=== PATIENT | female | born 1960 | race Caucasian/White ===

== ENCOUNTER 2019-10-22 08:33 | Outpatient (CLI) | payer BC, SELFPAY ==
--- NOTE | ~2019-10-22 | MM_ITS ---
EXAMINATION: MM screening yvette BI w raiza HISTORY: Screening mammogram TECHNIQUE: Craniocaudal and mediolateral oblique 3-D tomosynthesis images were obtained and synthetic 2-D images were generated. Bilateral rotated lateral CC views. CAD analysis was submitted and interp reted. COMPARISON: 09/13/2018, 08/18/2017, 08/03/2016 bilateral digital screening mammogram examinations BREAST PARENCHYMAL COMPOSITION: The breasts are extremely dense, which lowers the sensitivity of mamm ography. FINDINGS: There is a new asymmetric 13 mm opacity versus summation ....shadowing in the posterior out er left breast on craniocaudal projection. Diagnostic left mammogram and left breast ultrasound exami nation are recommended. Otherwise there is no evidence of suspicious mass, calcification, or architectural distortion to sugg est malignancy in either breast. There has been no other suspicious interval change. IMPRESSION: 1. Asymmetry in the posterior outer left breast on CC projection 2. Diagnostic left mammogram and left breast ultrasound examination are recommended BI-RADS Category 0: Incomplete: Needs additional imaging evaluation. Reviewed, dictated and finalized at location A. IMPRESSION: 1. Asymmetry in the posterior outer left breast on CC projection 2. Diagnostic left mammogram and left breast ultrasound examination are recomme nded BI-RADS Category 0: Incomplete: Needs additional imaging evaluation.
== END 2019-10-22 08:34 | disposition home or self-care (01) ==
PROVIDERS: PCP Internal Medicine; Visit Provider Nurse Practitioner
DX: Z12.31 Encounter for screening mammogram for malignant neoplasm of breast (principal)
CPT/HCPCS: 77063; 77067

== ENCOUNTER 2019-11-12 11:38 | Outpatient (CLI) | payer BC, SELFPAY ==
--- NOTE | ~2019-11-12 | MMUS_ITS ---
EXAMINATION: MM diagnostic mammo unilat LT, US breast LT limited HISTORY: Focal asymmetry of the left breast on screening mammogram TECHNIQUE: Additional 3-D tomosynthesis images of the left breast were performed and synthetic 2-D im ages were generated. CAD analysis was submitted and interpreted. High resolution limited left breast ultrasound was performed. COMPARISON: 10/22/2019, 09/13/2018, 08/18/2017, 08/03/2016 FINDINGS: MAMMOGRAPHIC FINDINGS: With spot compression, the focal asymmetry of the left breast described on screening mammogram has an appearance similar to comparison mammograms. No suspicious mass, calcification, or architectural dis tortion is identified. ULTRASOUND: There is no evidence of focal abnormal solid or cystic lesion in the vicinity of the mammographic fin ding in question. A 3 mm cyst is noted at the 4:00 location 6 cm from the nipple. IMPRESSION: 1. No mammographic or sonographic evidence of malignancy. 2. Recommend routine screening mammography in one year. BI-RADS Category 2: Benign finding(s). Reviewed, dictated and finalized at location A. IMPRESSION: 1. No mammographic or sonographic evidence of malignancy. 2. Recommend routine screening mammography in one year. BI-RADS Category 2: Benign finding(s).
== END 2019-11-12 11:39 | disposition home or self-care (01) ==
PROVIDERS: PCP Internal Medicine; Visit Provider Obstetrics & Gynecology Gynecology
DX: R92.8 Other abnormal and inconclusive findings on diagnostic imaging of breast (principal)
CPT/HCPCS: 76642; 77061; 77065; G0279

== ENCOUNTER → 2020-01-21 10:40 | Outpatient (CLI) | payer BC, SELFPAY ==
--- NOTE | ~2020-01-21 | XR_ITS ---
EXAMINATION: XR lumbar spine 6V w bending EXAM DATE: 01/21/2020 11:05 INDICATION: Low back pain radiating down right side. TECHNIQUE: Lumber spine frontal, lateral, bilateral oblique projections. Coned down frontal and lat eral L5-S1 lumbar projections for interpretation. Additional lateral flexion and lateral extension p rojections obtained. There are no prior studies for comparison. FINDINGS: Moderate disc disease at T11-12. The vertebral body and disc heights are otherwise well yunier ntained. The vertebral bodies are aligned in the AP dimension on the lateral projections. No spondylo lysis. Mild lumbar levoscoliosis. Mild lumbar facet arthropathy. Paraspinal soft tissue is unremarkab le. Sacrum, sacroiliac joints, sacral arcuate lines are intact. IMPRESSION: 1. Mild lumbar facet arthropathy. 2. T11-T12 moderate disc disease. Reviewed, dictated and finalized at location B.
== END ==
PROVIDERS: PCP Internal Medicine; Visit Provider Internal Medicine
DX: M51.34 Other intervertebral disc degeneration, thoracic region (principal)
CPT/HCPCS: 72114

== ENCOUNTER 2020-10-14 11:41 | Emergency (ER) | payer BC, SELFPAY ==
[2020-10-14 12:02] VITALS: BP 128/83; PULSE 72; RESP 16; TEMP 36.6; O2SAT 98
--- NOTE | 2020-10-14 12:18 | ED.GENADULT ---
HPI - General Adult General Chief complaint: Upper Respiratory Infection Stated complaint: chest congestion Source: patient Mode of arrival: ambulatory Limitations: no limitations History of Present Illness HPI narrative: 60 y/o female. PMH includes: MDD, Hypothyroid. Presents to ED today with acute complaints of nasal congestion, bilateral ear 'pressure', and nonproductive cough for the past 5 days. No fever, chills. No BUSH, sore throat. No chest pain, dyspnea, edema. She reports to have been experiencing 'yellow' and purulent nasal discharge, also noting maxillary facial pressure. -Covid vaccine UTD, and no concerns for covid viral type illness. -No additional acute complaints of illness have been relayed upon exam. Related Data Home Medications Medication Instructions Recorded Confirmed paroxetine HCl 20 mg tablet 20 mg PO DAILY tablet 02/11/20 02/11/20 Allergies Allergy/AdvReac Type Severity Reaction Status Date / Time No Known Allergies Allergy Verified 10/14/20 12:04 Review of Systems Review of Systems: Narrative: CONSTITUTIONAL: Denies fever, chills, sweats. EYES: Denies visual changes, redness, discharge. ENT: Positive rhinorrhea, congestion. Ear 'fullness'. 89-year-old man denies sore throat, otalgia. CARDIOVASCULAR: Denies chest pain, palpitations, edema. RESPIRATORY: Cough, non-productive. Denies dyspnea, wheezing. GASTROINTESTINAL: Denies abdominal pain, nausea, vomiting, diarrhea. GENITOURINARY: Denies dysuria, hematuria, abnormal discharge SKIN: Denies rash or itching. MUSCULOSKELETAL: Denies acute back pain, joint pain, or myalgia. NEUROLOGIC: Denies numbness, or focal weakness. PSYCHIATRIC: Denies anxiety or depression. All systems reviewed & are unremarkable except as noted in HPI and below PMFSH Past Medical History Medical History Melanoma Treated at [facility] c/o Dr. Singh Social History Social History Smoking status: Never smoker Second hand tobacco smoke exposure: No Alcohol intake: current Course Vital Signs Vital signs: Vital Signs Temperature 36.6 C 10/14/20 12:02 Pulse Rate 72 10/14/20 12:02 Respiratory Rate 16 10/14/20 12:02 Blood Pressure 128/83 10/14/20 12:02 Pulse Oximetry 98 10/14/20 12:02 Temperature 36.6 C 10/14/20 12:02 Pulse Rate 72 10/14/20 12:02 Respiratory Rate 16 10/14/20 12:02 Blood Pressure 128/83 10/14/20 12:02 Pulse Oximetry 98 10/14/20 12:02 Medical Decision Making MDM Narrative Medical decision making narrative: -Non-smoker. -No active Covid 19 viral concern. -Persistent and purulent nasal discharge, worsening > 72 hour timeframe. -Afebrile, non-tachycardic, normotensive, no apparent distress. -Start OP Zpack & Medrol Dose pack as directed for Sinusitis bacterial. -PC F/U 1 week advised. -Pt is aware to seek out additional prompt medical evaluation with emergent health status changes. Differential Diagnosis Differential Diagnosis: Differential Diagnosis: Consideration of the following conditions may be warranted for the presenting problem, they are not final diagnoses: upper respiratory infection, otitis media, sinusitis, RSV viral infection, bronchitis, pharyngitis, Streptococcal sore throat, COVID-19, and other. Medical Records Medical records reviewed: Yes I reviewed the external patient's medical records. Vital Signs Vital Signs: Vital Signs Temperature 36.6 C 10/14/20 12:02 Pulse Rate 72 10/14/20 12:02 Respiratory Rate 16 10/14/20 12:02 Blood Pressure 128/83 10/14/20 12:02 Pulse Oximetry 98 10/14/20 12:02 Temperature 36.6 C 10/14/20 12:02 Pulse Rate 72 10/14/20 12:02 Respiratory Rate 16 10/14/20 12:02 Blood Pressure 128/83 10/14/20 12:02 Pulse Oximetry 98 10/14/20 12:02 Critical Care Time Critical Care Time Critical C
== END 2020-10-14 12:38 | disposition home or self-care (01) ==
PROVIDERS: Emergency Provider Nurse Practitioner Adult Health
DX: J01.90 Acute sinusitis, unspecified (principal); E03.9 Hypothyroidism, unspecified
CPT/HCPCS: 99213; G0463

== ENCOUNTER 2020-10-23 07:31 | Outpatient (CLI) | payer BC, SELFPAY ==
--- NOTE | ~2020-10-23 | MM_ITS ---
EXAMINATION: MM screening yvette BI w raiza HISTORY: Screening mammogram TECHNIQUE: Craniocaudal and mediolateral oblique 3-D tomosynthesis images were obtained and synthetic 2-D images were generated. CAD analysis was submitted and interpreted. COMPARISON: No prior mammogram is available for comparison at this institution. BREAST PARENCHYMAL COMPOSITION: There are scattered areas of fibroglandular density. FINDINGS: History of bilateral breast reduction surgery in 1998. Scattered bilateral benign calcifica tions. There is no evidence of suspicious mass, calcification, or architectural distortion to suggest malignancy in either breast. There has been no suspicious interval change. IMPRESSION: 1. No mammographic evidence of malignancy. 2. Recommend routine screening mammography in one year. BI-RADS Category 2: Benign finding(s). Reviewed, dictated and finalized at location A.
== END 2020-10-23 07:32 | disposition home or self-care (01) ==
LOC: ANHIMG 07:33
PROVIDERS: Visit Provider Obstetrics & Gynecology Gynecology
DX: Z12.31 Encounter for screening mammogram for malignant neoplasm of breast (principal)
CPT/HCPCS: 77063; 77067

== ENCOUNTER 2021-12-13 14:55 | Outpatient (CLI) | payer BC, SELFPAY ==
[2021-12-13 16:48] LABS: Anion Gap 9 mmol/L (8-16); Blood Urea Nitrogen 15 mg/dL (7-17); Calcium 9.5 mg/dL (8.4-10.2); Carbon Dioxide 28 mmol/L (22-30); Chloride 102 mmol/L (98-107); Estimated Glomerular Filt Rate 57; Glucose 110 mg/dL (65-110); Potassium 4.4 mmol/L (3.4-5.0); Sodium 139 mmol/L (137-145)
== END 2021-12-13 14:56 | disposition home or self-care (01) ==
LOC: ANHSURGERY 14:59
PROVIDERS: Anesthesiology; PCP Family Medicine; Visit Provider Orthopaedic Surgery
DX: E87.6 Hypokalemia (principal); Z01.818 Encounter for other preprocedural examination
CPT/HCPCS: 36415; 80048

== ENCOUNTER 2021-12-16 00:19 | Day surgery (SDC) | payer BC, SELFPAY ==
--- NOTE | 2021-12-13 11:06 | SUR.PREOP ---
Report to the Outpatient Waiting Room, entrance under the green pavilion located off [facility], at time 0730 on date 12/16/21. OR Time: 0930. - You and your visitor will be asked to self-screen and do not enter if you have any COVID symptoms. - Only one visitor and NO children visitors are allowed at this time. - The patient visitor is requested to leave or wait in car when not with patient due to restrictions. - A mask is required within the hospital. Patients may have clear liquids (water, carbonated beverages, clear teas, apple juice) until 3 hours prior to surgery with a maximum of 20 ounces. - NO CLEAR LIQUIDS AFTER 0630 - No food from midnight until time of surgery - Infants may have breast milk until 4 hours before surgery, infant formula 6 hours prior to surgery. - Children will be allowed to drink immediately following surgery. If applicable, please bring a bottle or sippy cup to assist with drinking. Juice, water, soda, and popsicles are readily available. For infants on formula, please bring formula the day of surgery. Pacifiers are allowed. Take the following medications with a SIP of water the morning of surgery: PAXIL, LEVOTHYROXINE Please no make-up, nail portuguese, hairspray, perfume, deodorant, or body powder the day of surgery. No jewelry (including any body piercings) or valuables the day of surgery, leave them at home. Please take a shower or bath the night before, or the morning of, surgery with an antibacterial soap. Wear comfortable, loose fitting clothing. Children are encouraged to wear pajamas. - Jewelry must be removed prior to entering the operating room. Rings and piercings that are not removed may be cut off. - The hospital will not accept responsibility for valuables. - Please leave all valuables, including medications, at home the day of surgery. If you are going home after surgery, a licensed inventory associate and driver must drive you home. - NO public transportation without another adult. - We recommend that an adult stay with you for 24 hours following discharge. - We also recommend that you do not drive, make important decision, drink alcoholic beverages, or take any drugs that were not prescribed by your health care provider for at least 24 hours after your discharge time. For Pediatric surgeries, we recommend two adults accompany the child home (only one inside the building at this time). Follow any additional instructions given to you from your surgeon. If you or anyone in your household have experienced Covid symptoms in the past week, please notify your surgeon or the nurse liaison at the phone number below for possible testing. Telephone instructions given to RACHID RUST and asked if any additional questions and then verbalized understanding. Patient advised to call surgeon office or pre surgery nurse liaison [phone] if any additional questions.
[2021-12-13 11:45] VITALS: BMI 36.1
--- NOTE | 2021-12-16 07:03 | PM.IMHP ---
H&P: HPI History of Present Illness Date/Time: 12/16/21 07:03 Chief Complaint: Left hand numbness and tingling, catching of the ring finger. Narrative: 61-year-old woman diagnosed with left carpal tunnel and trigger finger deformity. Failed conservative treatment. Presents for operative treatment. Review of Systems Constitutional: Constitutional: Denies fever(s) Eyes: Eyes: Denies blurry vision ENT: Reports Normal hearing present Cardiovascular: Cardiovascular: Denies chest pain and Denies dyspnea Respiratory: Respiratory: Denies dyspnea and Denies wheezing Gastrointestinal: Gastrointestinal: Denies abdominal pain Genitourinary: Genitourinary: Denies urinary urgency Musculoskeletal: Musculoskeletal: Reports as per HPI and Denies numbness Integumentary/Breasts: Skin/Breast: Denies changing lesions and Denies sores Neurologic: Reports Normal hearing present, Denies behavioral changes, Denies confusion, Denies numbness and Denies convulsions Psychiatric: Psychiatric: Denies behavioral changes, Denies confusion and Denies hallucinations Endocrine: Endocrine: Denies heat intolerance Hematologic/Lymphatic: Hematologic/Lymphatic: Denies easy bleeding Allergic/Immunologic: Allergic/Immunologic: Denies wheezing PMFSH Past Medical History Medical History Carpal tunnel syndrome, right Melanoma Treated at [facility] c/o Dr. Singh Surgical History Surgical History Hx of breast reduction, elective Family History Family History Other Arthritis Cerebrovascular accident Social History Social History Smoking status: Never smoker Second hand tobacco smoke exposure: No Alcohol intake: current Substance use type: does not use Gender identity (if verbalized by the patient): Female Spiritual care concerns: No Meds Home Medications and Allergies Home Medications Medication Instructions Recorded Confirmed Type paroxetine HCl 20 mg tablet 20 mg PO DAILY 02/11/20 12/13/21 History iron 18 mg tablet 18 mg PO DAILY 01/21/21 12/13/21 History spironolactone 100 mg tablet 100 mg PO DAILY #90 tabs 09/10/21 12/13/21 Rx cholecalciferol (vitamin D3) 1,250 50,000 unit PO WEEKLY 12/13/21 12/13/21 History mcg (50,000 unit) capsule levothyroxine 137 mcg tablet 137 mcg PO DAILY 12/13/21 12/13/21 History Allergies Allergy/AdvReac Type Severity Reaction Status Date / Time No Known Allergies Allergy Verified 12/13/21 11:17 Exam Const: General: cooperative, healthy appearing, no acute distress, well developed and alert; No confusion Orientation/consciousness: patient oriented x3 and No confusion HENMT: Head: normal to inspection, normocephalic and atraumatic Eyes: Conjunctivae: conjunctivae normal Sclera: sclerae normal Neck: Neck: supple and nontender Chest: Chest palpation & inspection: normal inspection of the chest Resp: Effort & Inspection: normal respiratory effort and no audible wheezes Cardio: Rate: regular rate Rhythm: regular rhythm : General: Yes deferred Skin: General skin exam: no rashes or lesions noted Neuro: General: patient oriented x3 and No confusion Assessment and Plan Assessment and plan (1) Trigger finger: Qualifiers: Trigger finger location: index finger Laterality: left Qualified Code(s): M65.322 - Trigger finger, left index finger Code(s): M65.30 - Trigger finger, unspecified finger Status: Acute (2) CTS (carpal tunnel syndrome): Qualifiers: Laterality: left Qualified Code(s): G56.02 - Carpal tunnel syndrome, left upper limb Code(s): G56.00 - Carpal tunnel syndrome, unspecified upper limb Status: Acute Assessment and Plan: Discussed nonoperative and opera
--- NOTE | 2021-12-16 07:05 | WPDHPUPDATE1 ---
History and Physical Update Update Date/Time: 12/16/21 07:05 History and Physical has been reviewed, including an updated exam of the patient. There are NO changes in the patient's condition. Risks, benefits, and alternatives have been discussed and questions answered. Patient agrees to proceed with procedure.
--- NOTE | 2021-12-16 08:19 | P.PNAN_ITS ---
Anes - Initial Pre Proc Eval Procedure: Operation Date: 12/16/21 09:30 Proposed Procedures p Left Open Carpal Tunnel Release, - Isaias Ardon MD s Left Middle and Index Trigger Finger Release - Isaias Ardon MD Date/Time: 12/16/21 08:19 Surgeon: Isaias Ardon MD Pre Op Diagnosis: lft cts, lft middle&index finger locking Patient Data Age: 61 Gender: F Height: 1.7 m Weight: 104.5 kg Allergies Allergy/AdvReac Type Severity Reaction Status Date / Time No Known Allergies Allergy Verified 12/16/21 08:26 Home Medications Medication Instructions Recorded Confirmed Type paroxetine HCl 20 mg tablet 20 mg PO DAILY 02/11/20 12/16/21 History iron 18 mg tablet 18 mg PO DAILY 01/21/21 12/16/21 History spironolactone 100 mg tablet 100 mg PO DAILY #90 tabs 09/10/21 12/16/21 Rx cholecalciferol (vitamin D3) 1,250 50,000 unit PO WEEKLY 12/13/21 12/16/21 History mcg (50,000 unit) capsule levothyroxine 137 mcg tablet 137 mcg PO DAILY 12/13/21 12/16/21 History Patient hx anesthesia problems: none Family hx anesthesia problems: none Results Review: All pre-operative results and documents have been reviewed as part of the pre- operative evaluation. [facility] Past Medical History Medical History (Updated 12/16/21 @ 08:20 by Deon Figueroa DO) Carpal tunnel syndrome, right Generalized anxiety disorder Hyperlipidemia Hypothyroidism, unspecified Melanoma Treated at [facility] c/o Dr. Singh Surgical History Surgical History Hx of breast reduction, elective Family History Family History Other Arthritis Cerebrovascular accident Social History Social History Smoking status: Never smoker Second hand tobacco smoke exposure: No Alcohol intake: current Substance use type: does not use Gender identity (if verbalized by the patient): Female Spiritual care concerns: No Anes - Eval Final PreProcedure Day of Procedure 12/16/21 08:19 Patient weight: obese Heart: regular rate and rhythm Lungs: clear to auscultation Airway: Mallampati scale class II Neurological: alert and oriented Last oral intake: >/= 8 hours ASA classification: II Emergent: no Anesthetic plan: proceed Anesthesia type and monitoring: general GIVS and standard monitoring Results Review: All pre-operative results and documents have been reviewed as part of the pre- operative evaluation. Informed Consent: The patient's anesthetic plan and its attendant risks and benefits were discussed with the patient/family/POA. Questions were solicited and answers provided to the satisfaction of the patient/family/POA.
[2021-12-16 08:23] VITALS: BP 122/65; PULSE 60; RESP 16; TEMP 36.6; O2SAT 99
[2021-12-16] MEDS: LACTATED RINGERS 1,000 ML 30 ML IV CONT (08:25)
[2021-12-16] MEDS: ACETAMINOPHEN 500 MG TABLET 1000 MG PO (08:34)
[2021-12-16] MEDS: KETOROLAC 15 MG/ML VIAL (*BKC) IV PUSH (08:34)
--- NOTE | 2021-12-16 09:18 | W.PM.PROC2 ---
Procedure Note - Detailed Date of Procedure 12/16/21 Pre-op Diagnosis lft cts, lft middle&index finger locking Post-op Diagnosis Same Procedure Performed Left carpal tunnel release. 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 Conservative treatment with bracing/ splinting, activity modifications, medication, ergonomics, injections has failed. Symptoms are daily and affect ability to use hand. The patient desires operative treatment. In addition, trigger deformity of the left index and middle finger. Unrelieved with cortisone injection. Desires operative release. Description of Procedure After informed consent was given, the operative extremity was marked in the preoperative holding area. Intravenous antibiotics were given. The patient was taken to the operating room and underwent conscious sedation by the anesthesia team. A time-out was performed confirming patient, procedure, and operative site. Local infiltrate at the carpal tunnel was done with 0.5% marcaine. Prepping and draping was done using chloraprep skin solution with usual surgical sterile technique. Anatomic landmarks marked on skin. Hand was exsanguinated and arm tourniquet inflated to 225mmHg. Incision was made with #15 blade knife in skin crease on volar palm. Hemostasis was achieved with electrocautery. Careful dissection was carried down to the transverse carpal ligament. Retractors were placed. Ligament overlying median nerve was incised in line with skin incision using habematolel blade. Proximal and distal release was done with metzenbaum scissors under direct visualization. Mosquito clamp was placed deep to ligament to protect nerve during release. The nerve was inspected and noted to be intact with mild flattening. Tendons had good excursion. The index finger was then addressed. Transverse incision was made in the skin crease over the A1 marcelo with a 15 blade knife. Hemostasis controlled with bipolar cautery. Flexor tendon identified. Retractors placed. Release of the A1 marcelo then performed with [place] blade and direct visualization. Finger was then taken through range of motion and good release of the tendon was noted. The long middle finger was then addressed. Transverse incision was made in the skin crease over the A1 marcelo with a 15 blade knife. Hemostasis controlled with bipolar cautery. Flexor tendon identified. Retractors placed. Release of the A1 marcelo then performed with [place] blade and direct visualization. Finger was then taken through range of motion and good release of the tendon was noted. The tourniquet was then released and pressure held. Bleeding points were coagulated with bipolar cautery. The wounds were thoroughly irrigated with antibiotic solution. The skin was closed with 4-0 nylon interrupted suture. A sterile dressing was applied. Good capillary refill in the fingers and thumb was noted. The patient was transported to the recovery room in stable condition. All sponge, needle, instrument counts were correct at the end of the case. Estimated Blood Loss 2 Tourniquet Time 7 Drains No Packing No Pathology None sent Complications None Condition Stable Disposition PACU
[2021-12-16] MEDS: ceFAZolin 2 GM/D5W 50 ML 2 GM/50 ML BAG IVPB (09:30)
[2021-12-16] MEDS: LIDOCAINE HCL 2% PF INJ 5 ML VIAL 20 ML INFILTRATE (10:05)
[2021-12-16 10:30] VITALS: BP 103/66; PULSE 71; RESP 16; O2SAT 95
[2021-12-16 11:00] VITALS: BP 113/75; PULSE 57; RESP 16
[2021-12-16 11:30] VITALS: BP 117/84; PULSE 67; RESP 16
== END 2021-12-16 11:32 | disposition home or self-care (01) ==
PROVIDERS: PCP Family Medicine; Visit Provider Orthopaedic Surgery
PROC: (CPT 64721; principal; 2021-12-16 09:30)
PROC: (CPT 26055; 2021-12-16 09:30)
DX: G56.02 Carpal tunnel syndrome, left upper limb (principal); M65.332 Trigger finger, left middle finger; M65.322 Trigger finger, left index finger; M24.842 Other specific joint derangements of left hand, not elsewhere classified; E03.9 Hypothyroidism, unspecified; F41.1 Generalized anxiety disorder; E78.5 Hyperlipidemia, unspecified; Z85.820 Personal history of malignant melanoma of skin; E66.9 Obesity, unspecified; Z68.36 Body mass index [BMI] 36.0-36.9, adult
CPT/HCPCS: 64721; 26055 ×2; A9270; J0690; J1885; J2250; J2704; J3010; J7120

== ENCOUNTER → 2021-12-23 13:40 | Outpatient (CLI) | payer BC, SELFPAY ==
--- NOTE | ~2021-12-23 | DEXA_ITS ---
Bone Density Report Name: RACHID RUST Age: 61 Sex: Female Ethnicity: White Date of : 1960 Indication: postmenopausal; screening for osteoporosis; parental hip fracture; height loss; Referring Provider: KITTY, AHMET Study: Bone densitometry was performed. Exam Date: December 23, 2021 Accession number: [id number] Bone Density: Region BMD T-score Z-score Classification AP Spine (L1-L4) 1.172 1.1 2.5 Normal Femoral Neck (Left) 0.940 0.8 2.1 Normal Total Hip (Left) 1.205 2.2 3.1 Normal Femoral Neck (Right) 0.936 0.8 2.0 Normal Total Hip (Right) 1.143 1.6 2.6 Normal Total Hip Mean 1.174 1.9 2.9 Normal World Health Organization criteria for BMD impression classify patients as: Normal (T-score at or above -1.0), Osteopenia (T-score between -1.0 and -2.5), or Osteoporosis (T-score at or below -2.5). 10-year Fracture Risk: FRAX not reported because: All T-scores for Spine Total, Hip Total, Femoral Neck at or above -1.0 Previous Exams: Region Exam Age BMD T-score BMD Change BMD Change Date g/cm2 vs Baseline vs Previous AP Spine(L1-L4) 12/23/2021 61 1.172 1.1 0.006 0.006 07/23/2014 53 1.166 1.1 Total Hip(Left) 12/23/2021 61 1.205 2.2 -0.028 -0.028 07/23/2014 53 1.233 2.4 Total Hip(Right) 12/23/2021 61 1.143 1.6 -0.025 -0.025 07/23/2014 53 1.167 1.8 *Denotes significance at 95% confidence level, LSC for AP Spine = 0.022 g/cm2, LSC for Total Hip = 0.027 g/cm2 Clinical Information Provided by Patient: Parent has had a hip fracture Has used the following medications: Vitamin D Patient maximum height was 67 Menopause Age: 56 Drinks caffeinated beverages Onset of menses at age 14 Number of children 2 Impression: The patient has normal bone mass. The patient has risk factors, including: parental hip fracture. No significant bone loss was observed. Discussion: LOW RISK OF FRACTURE; BONE DENSITY IS WELL ABOVE THE MINIMUM DESIRABLE LEVEL AND ABOVE AVERAGE FOR AGE AND SEX AT ALL SKELETAL SITES TESTED. This person's bone density is above expected limits for age and sex. This is rarely clinically significant, but should be pursued if there are significant musculoskeletal complaints. The patient should follow a healthful lifestyle (good nutrition with adequate calcium and vitamin D, and appropriate weight-bearing exercise). Follow-Up: Consider repeating this
--- NOTE | ~2021-12-23 | MM_ITS ---
EXAMINATION: MM screening [facility] BI w [facility] HISTORY: Screening TECHNIQUE: Craniocaudal and mediolateral oblique 3-D tomosynthesis images were obtained and synthetic 2-D images were generated. CAD analysis was submitted and interpreted. COMPARISON: Comparison to multiple prior studies sequentially, with oldest reviewed study dated 08/2016. BREAST PARENCHYMAL COMPOSITION: There are scattered areas of fibroglandular density. FINDINGS: There is no evidence of suspicious mass, calcification, or architectural distortion to sugg est malignancy in either breast. There has been no suspicious interval change. IMPRESSION: 1. No mammographic evidence of malignancy. 2. Recommend routine screening mammography in one year. BI-RADS Category 1: Negative Reviewed, dictated and finalized at location A.
== END ==
PROVIDERS: PCP Family Medicine; Visit Provider Nurse Practitioner
DX: Z12.31 Encounter for screening mammogram for malignant neoplasm of breast (principal); Z78.0 Asymptomatic menopausal state
CPT/HCPCS: 77063; 77067; 77080

== ENCOUNTER 2022-01-27 01:32 | Day surgery (SDC) | payer BC, SELFPAY ==
[2022-01-20 15:48] VITALS: BMI 36.8
--- NOTE | 2022-01-20 15:54 | PC.NURSE ---
Report to the Outpatient Waiting Room, entrance under the green pavilion located off [facility], at time 0600 on date 01/27/22. OR Time: 0730. Time changes happen often and if your time is changed the preop area will call you the afternoon before. - You and your visitor will be asked to self-screen and do not enter if you have any COVID symptoms. - Only one visitor and NO children visitors are allowed at this time. - The patient visitor is requested to leave or wait in car when not with patient due to restrictions. - A mask is required within the hospital. Patients may have clear liquids (water, carbonated beverages, clear teas, apple juice) until 3 hours prior to surgery with a maximum of 20 ounces. - No food from midnight until time of surgery Take the following medications with a SIP of water the morning of surgery: LEVOTHYROXINE, PAROXETINE Medications to discontinue per physician: VITAMINS/SUPPLEMENTS Date to take last dose: 01/23/22 Please no make-up, nail amharic, hairspray, perfume, deodorant, or body powder the day of surgery. No jewelry (including any body piercings) or valuables the day of surgery, leave them at home. Please take a shower or bath the night before, or the morning of, surgery with an antibacterial soap. Wear comfortable, loose fitting clothing. - Jewelry must be removed prior to entering the operating room. Rings and piercings that are not removed may be cut off. - The hospital will not accept responsibility for valuables. - Please leave all valuables, including medications, at home the day of surgery. If you are going home after surgery, a licensed cattle driver must drive you home. - NO public transportation without another adult. - We recommend that an adult stay with you for 24 hours following discharge. - We also recommend that you do not drive, make important decision, drink alcoholic beverages, or take any drugs that were not prescribed by your health care provider for at least 24 hours after your discharge time. Follow any additional instructions given to you from your surgeon. If you or anyone in your household have experienced Covid symptoms in the past week, please notify your surgeon or the nurse liaison at the phone number below for possible testing. Telephone instructions given to PT - RACHID RUST and asked if any additional questions and then verbalized understanding. Patient advised to call surgeon office or pre surgery nurse liaison [phone] if any additional questions.
--- NOTE | 2022-01-26 13:13 | P.PNAN_ITS ---
Anes - Initial Pre Proc Eval Procedure: Operation Date: 01/27/22 07:30 Proposed Procedures p Right Carpal Tunnel Release - Isaias Ardon MD Date/Time: 01/26/22 13:13 Surgeon: Isaias Ardon MD Pre Op Diagnosis: Rt Carpal Tunnel Syndrome Patient Data Age: 61 Gender: F Height: 1.7 m Weight: 106.6 kg Allergies Allergy/AdvReac Type Severity Reaction Status Date / Time No Known Allergies Allergy Verified 01/27/22 06:31 Home Medications Medication Instructions Recorded Confirmed Type paroxetine HCl 20 mg tablet 20 mg PO DAILY 02/11/20 01/27/22 History iron 18 mg tablet 18 mg PO DAILY 01/21/21 01/27/22 History spironolactone 100 mg tablet 100 mg PO DAILY #90 tabs 09/10/21 01/27/22 Rx cholecalciferol (vitamin D3) 1,250 50,000 unit PO WEEKLY 12/13/21 01/27/22 History mcg (50,000 unit) capsule levothyroxine 137 mcg tablet See Rx Instructions .Route 01/11/22 01/27/22 Rx .COMPLEX #90 tabs Patient hx anesthesia problems: none Family hx anesthesia problems: none Results Review: All pre-operative results and documents have been reviewed as part of the pre- operative evaluation. [facility] Past Medical History Medical History (Updated 12/28/21 @ 11:13 by Isaias Ardon MD) Carpal tunnel syndrome, left Carpal tunnel syndrome, right Generalized anxiety disorder Hyperlipidemia Hypothyroidism, unspecified Melanoma Treated at [facility] c/o Dr. Singh Surgical History Surgical History Hx of breast reduction, elective Family History Family History Other Arthritis Cerebrovascular accident Social History Social History Smoking status: Never smoker Second hand tobacco smoke exposure: No Alcohol intake: current Alcohol use details: RARE Substance use: never Substance use type: does not use Living arrangements: alone Gender identity (if verbalized by the patient): Female Spiritual care concerns: No Anes - Eval Final PreProcedure Day of Procedure 01/26/22 13:13 Patient weight: obese Heart: regular rate and rhythm Lungs: clear to auscultation Airway: Mallampati scale class II Neurological: alert and oriented Last oral intake: >/= 8 hours ASA classification: II Emergent: no Anesthetic plan: proceed Anesthesia type and monitoring: general GIVS and standard monitoring Results Review: All pre-operative results and documents have been reviewed as part of the pre- operative evaluation. Informed Consent: The patient's anesthetic plan and its attendant risks and benefits were discussed with the patient/family/POA. Questions were solicited and answers provided to the satisfaction of the patient/family/POA.
[2022-01-27] MEDS: ACETAMINOPHEN 500 MG TABLET 1000 MG PO (06:37)
[2022-01-27] MEDS: LACTATED RINGERS 1,000 ML 30 ML IV CONT (06:44)
[2022-01-27 06:46] VITALS: BP 132/83; PULSE 65; RESP 16; TEMP 36.6; O2SAT 96
--- NOTE | 2022-01-27 07:04 | WPDHPUPDATE1 ---
History and Physical Update Update Date/Time: 01/27/22 07:04 History and Physical has been reviewed, including an updated exam of the patient. There are NO changes in the patient's condition. Risks, benefits, and alternatives have been discussed and questions answered. Patient agrees to proceed with procedure.
[2022-01-27] MEDS: KETOROLAC 15 MG/ML VIAL (*BKC) IV PUSH (07:07)
[2022-01-27] MEDS: ceFAZolin 2 GM/D5W 50 ML 2 GM/50 ML BAG IVPB (07:32)
[2022-01-27] MEDS: LIDOCAINE HCL 2% LOCAL INJ 20 ML VIAL 5 ML INFILTRATE (07:56)
[2022-01-27] MEDS: BUPIVACAINE/EPINEPHRINE 0.25% 50 ML VIAL INFILTRATE (07:57)
[2022-01-27 08:16] VITALS: BP 122/75; PULSE 73; RESP 14; O2SAT 95
--- NOTE | 2022-01-27 08:16 | W.PM.PROC2 ---
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 Conservative treatment with bracing/ splinting, activity modifications, medication, ergonomics, injections has failed. Symptoms are daily and affect ability to use hand. The patient desires operative treatment. She has undergone left carpal tunnel release 2 months ago and did well from that. Description of Procedure After informed consent was given, the operative extremity was marked in the preoperative holding area. Intravenous antibiotics were given. The patient was taken to the operating room and underwent conscious sedation by the anesthesia team. A time-out was performed confirming patient, procedure, and operative site. Local infiltrate at the carpal tunnel was done with 0.5% marcaine. Prepping and draping was done using chloraprep skin solution with usual surgical sterile technique. Anatomic landmarks marked on skin. Hand was exsanguinated and arm tourniquet inflated to 250mmHg. Incision was made with #15 blade knife in skin crease on volar palm. Hemostasis was achieved with electrocautery. Careful dissection was carried down to the transverse carpal ligament. Retractors were placed. Ligament overlying median nerve was incised in line with skin incision using [place] blade. Proximal and distal release was done with metzenbaum scissors under direct visualization. Mosquito clamp was placed deep to ligament to protect nerve during release. The nerve was inspected and noted to be intact with mild flattening. Tendons had good excursion. The tourniquet was then released and pressure held. Bleeding points were coagulated with bipolar cautery. The wound was thoroughly irrigated with antibiotic solution. The skin was closed with 4-0 nylon interrupted suture. A sterile dressing was applied. Good capillary refill in the fingers and thumb was noted. The patient was transported to the recovery room in stable condition. All sponge, needle, instrument counts were correct at the end of the case. Estimated Blood Loss 2 Tourniquet Time 6 Drains No Packing No Pathology None sent Complications None Condition Stable Disposition PACU
[2022-01-27 08:45] VITALS: BP 114/68; PULSE 64; RESP 16; O2SAT 93
[2022-01-27 09:15] VITALS: BP 128/66; PULSE 61; RESP 16
[2022-01-27 09:30] VITALS: BP 128/67; PULSE 63; RESP 16
== END 2022-01-27 09:41 | disposition home or self-care (01) ==
PROVIDERS: PCP Family Medicine; Visit Provider Orthopaedic Surgery
PROC: (CPT 64721; principal; 2022-01-27 07:30)
DX: G56.01 Carpal tunnel syndrome, right upper limb (principal)
CPT/HCPCS: 64721; A9270; J0690; J1885; J2250; J2405; J2704; J3010; J7120

== ENCOUNTER 2022-04-18 08:00 | Outpatient (RCR) | payer BC, SELFPAY ==
--- NOTE | 2022-02-21 16:52 | BUPTOPEVAL1 ---
Assessment and note entered by Bell Cortés, PT Evaluation Information Assessment Status Evaluation Reported Pain Level Pain Score 1,0: Self Report Assessment PT Clinical Summary Pt presents w/ c/o left shoulder and left hand difficulties and discomfort. Left shoulder evaluation demo's decreased active and passive ROM , multiple tight muscle groups, decreased strength left shoulder globally, (-) Empty can test, rounded shoulders L>R, decreased scapular motion and awareness all of which suggest impingement secondary to poor scapulohumeral rhythm and capsular tightness. Pt also demos decreased wrist and finger motion with muscular and capsular end- feels effecting her function. Thus pt will greatly benefit from PT in order to address deficits, and improve pain and function. Plan of Care Interventions Electrical Stimulation,Hot Pack/Cold Pack,Manual Therapy,Neuro Re-education,Paraffin Bath,Patient/ Caregiver Educati,Therapeutic Activities, Therapeutic Exercise,Ultrasound,Other Other Interventions Taping PT Services Indicated Yes Treatment Frequency and 2x weekly x 8 weeks Duration These treatments will address the objective and functional deficits as defined above. The patient will be advanced safely and appropriately in order for the patient to progress towards his/her prior level of function. Additional exercises will be introduced and as well as a comprehensive home exercise program upon discharge, if needed, ?to ensure carryover of functional gains achieved in the clinic. This treatment plan has been reviewed and agreement upon by the patient.
--- NOTE | 2022-03-21 16:51 | PTOPPROGNS ---
Assessment and note entered by Bell Cortés, PT Assessment Status Progress Report Diagnosis left shoulder pain, oth chronic pain, carpal tunnel syndrome LUE Subjective Information hand feels definite improvement at 85-90% improved shoulder improvement 60% Pt reports index finger motion is definitely improved middle finger motion improved but still stiff. Pt has modifed her arm rest on chair and monitoring posture so resting discomfort has improved. Still has discomfort with rolling over at night Assessment PT Clinical Summary Pt demo's improved ROM of all involved joints but especially with index finger MCP extension, middle finger MCP extension, and middle finger PIP extension. Multiple other joints did not show significant progression in PROM however the ease of motion was much improved. Pt notes also feels her joints are not as swollen and large. Reports feeling 85-90% improved with her left hand. Pt should had been showing great progress with her range and discomfort but recently appears to have had increases in discomfort again and rates herself only at 60% improvement. Testing does show improved ROM especially with functional internal rotation. However today she shows impingement symptoms again with abd at her end-range. Also demos decreased GH joint stability and continued strength deficit. Discussed findings with patient and encouraged pt largest focus of therapy has been on her hands up to this point. As her hands appear to be improving the focus will shift to shoulder with continued therapy. Plan of Care Interventions Electrical Stimulation,Hot Pack/Cold Pack,Manual Therapy,Neuro Re-education,Paraffin Bath,Patient/ Caregiver Educati,Therapeutic Activities, Therapeutic Exercise,Ultrasound,Other PT Services Indicated Yes Treatment Frequency and 2x weekly x 4 weeks Duration These treatments will address the objective and functional deficits as defined above. The patient will be advanced safely and appropriately in order for the patient to progress towards his/her prior level of function. Additional exercises will be introduced and as well as a comprehensive home exercise program upon discharge, if needed, ?to ensure carryover of functional gains achieved in the clinic. This treatment plan has been reviewed and agreement upon by the patient.
--- NOTE | 2022-04-08 12:51 | PCPTNOTE ---
Patient called & cancelled scheduled appointment this date due to pt illness
--- NOTE | 2022-04-19 11:13 | BUPTOPEVAL1 ---
Assessment and note entered by Bell Cortés, PT Assessment Status Progress Report Diagnosis left shoulder pain, oth chronic pain, carpal tunnel syndrome LUE Subjective Information hand feels 90% improved shoulder improvement 70% Pt reports index finger motion is definitely improved middle finger motion improved but still stiff. Still has discomfort with rolling over at night - improved Reported Pain Level Pain Score 2,0: Self Report Assessment PT Clinical Summary Pt has attended physical therapy consistently for left hand and left shoulder POC. Today she reports her hand feeling 90% improved overall and her shoulder is 70% improved overall. Pt measurements of 2nd and 3rd digit MCP extension, and DIP flexion remain overall unchanged. Pt feels she is able to continue her stretching independently for these and would like to focus on her shoulder. She still has pain in her shoulder at night with rolling over on it, with her highest pain level at 5/10 and lowest at 0/10. She continues to show improving AROM with shoulder but demo's scapular and RTC activation pattern deficits causing impingement at times as well as increased muscle tone and adhesions multiple surrounding muscles. Thus patient will benefit from cont therapy to continue improving overall and meet her goals Plan of Care Interventions Electrical Stimulation,Hot Pack/Cold Pack,Manual Therapy,Neuro Re-education,Paraffin Bath,Patient/ Caregiver Educati,Therapeutic Activities, Therapeutic Exercise,Ultrasound,Other Other Interventions Taping PT Services Indicated Yes Treatment Frequency and 1-2x weekly x 12 vistis Duration These treatments will address the objective and functional deficits as defined above. The patient will be advanced safely and appropriately in order for the patient to progress towards his/her prior level of function. Additional exercises will be introduced and as well as a comprehensive home exercise program upon discharge, if needed, ?to ensure carryover of functional gains achieved in the clinic. This treatment plan has been reviewed and agreement upon by the patient.
== END 2022-04-27 14:17 | disposition still patient (30) ==
LOC: ANHHIPT 08:00
PROVIDERS: PCP Family Medicine; Visit Provider Orthopaedic Surgery
DX: M25.512 Pain in left shoulder (principal); G56.02 Carpal tunnel syndrome, left upper limb; G89.29 Other chronic pain
CPT/HCPCS: 97014; 97110; 97140; 97162; G0283

== ENCOUNTER 2022-07-08 08:45 | Outpatient (RCR) | payer BC, SELFPAY ==
--- NOTE | 2022-04-27 16:30 | PCPTNOTE ---
The treatment documented on this account is a continuation of the treatment documented on visit number [id number]. Please see documentation on both accounts to view progress. The Plan of Care has been transitioned and updated within the new V#. I have addressed and agree with the discipline specific Problems, Interventions, and Goals for the current certification period. Completed interventions, outcomes, and problems have been marked as Inactive to facilitate the copying of the Care plan routine for recurring accounts.
--- NOTE | 2022-06-01 15:44 | PTOPDC ---
Assessment and note entered by Bell Cortés, PT Assessment Status Progress report Diagnosis left shoulder pain, oth chronic pain, carpal tunnel syndrome LUE Subjective Information Pt reports feeling 85% improved overall in her shoulder. Cont to have catching at times and pain with this. Pt reported her overall improvement in her hands at 90% previous progress note and today reports hand is still doing well. Reported Pain Level Pain Score 1,0: Self Report Assessment PT Clinical Summary Pt has attended therapy consistently for left hand and left shoulder issues. Her hand was initial focus for therapy and returned to 90% normal with pt continuing her home program and shifting focus to shoulder. Initially shoulder program showed improvement, but recently has plateaued. Pt cont to demo decreased AROM and PROM in true abd especially, has multiple instances of catching both in AROM and PROM causing discomfort. She has done well with correction of scapular positioning and HEP stretching, however cont to have impingement type symptoms. Special testing also show possible labral involvement and supraspinatus involvement. Thus pt is being referred by to Ortho MD for further testing and discussion of progression. Plan of Care PT Services Indicated Yes Treatment Frequency and Will await MD instruction to continue. If no Duration instruction received, POC will be discharged in 14 days.
--- NOTE | 2022-06-24 17:41 | PTOPPROG ---
Assessment and note entered by Bell Cortés, PT Evaluation Information Assessment Status Re-evaluation Diagnosis left shoulder pain Subjective Information Pt reports did get steroid shot and got significant relief from pain. Still catches every once in a while. Assessment PT Clinical Summary Pt attended therapy consistently but plateaued in her progress. She returned to Ortho MD and recieved a steroid shot in her shoulder and since has had greatly improved progress in her ROM and discomfort as well as overall strength. However she cont to have catching episodes, demos multiple areas of tissue density, decreased Ext. Rot, I.R. and occasional abnormal muscle activation patterns . Thus pt will benefit from cont therapy to address deficits and improve function without pain Plan of Care Interventions Electrical Stimulation,Hot Pack/Cold Pack,Manual Therapy,Neuro Re-education,Patient/Caregiver Educati,Therapeutic Activities,Therapeutic Exercise,Ultrasound PT Services Indicated Yes Treatment Frequency and 1-2x weekly x 8 weeks Duration These treatments will address the objective and functional deficits as defined above. The patient will be advanced safely and appropriately in order for the patient to progress towards his/her prior level of function. Additional exercises will be introduced and as well as a comprehensive home exercise program upon discharge, if needed, ?to ensure carryover of functional gains achieved in the clinic. This treatment plan has been reviewed and agreement upon by the patient.
--- NOTE | 2022-07-20 16:14 | PCPTNOTE ---
This treatment is being continued on visit number [id number]. Please see documentation on both accounts to view progress. Completed interventions, outcomes, and problems have been marked as Inactive to facilitate the copying of the Care plan routine for recurring accounts.
== END 2022-07-19 13:24 | disposition still patient (30) ==
LOC: ANHHIPT 08:45
PROVIDERS: PCP Family Medicine; Visit Provider Orthopaedic Surgery
DX: M25.512 Pain in left shoulder (principal); G89.29 Other chronic pain; G56.02 Carpal tunnel syndrome, left upper limb
CPT/HCPCS: 97014; 97110; 97112; 97140; 97164; G0283

== ENCOUNTER 2022-07-29 08:00 | Outpatient (RCR) | payer BC, SELFPAY ==
--- NOTE | 2022-07-20 16:16 | PCPTNOTE ---
The treatment documented on this account is a continuation of the treatment documented on visit number [id number]. Please see documentation on both accounts to view progress. The Plan of Care has been transitioned and updated within the new V#. I have addressed and agree with the discipline specific Problems, Interventions, and Goals for the current certification period. Completed interventions, outcomes, and problems have been marked as Inactive to facilitate the copying of the Care plan routine for recurring accounts.
--- NOTE | 2022-07-29 14:24 | PTOPDC ---
Assessment and note entered by Bell Cortés, PT Assessment Status Discharge Diagnosis left shoulder pain Subjective Information Pt reports since starting use of instruments on soft tissue, and with the second steroid shot shoulder is now feeling 95% improved overall. Reported Pain Level Pain Score 0: Self Report Assessment PT Clinical Summary Pt reports feeling 95% improved overall. Demo's greatly improved ROM within appropriate planes and demo's strength WFL bilaterally. Pt has been educated in maintaining progress and how to address therapy in the future should she require assistance. Pt is thus being discharged at this time due to completion of therapy plan of care.
== END 2022-08-01 12:04 | disposition home or self-care (01) ==
LOC: ANHHIPT 08:00
PROVIDERS: PCP Family Medicine; Visit Provider Orthopaedic Surgery
DX: M25.512 Pain in left shoulder (principal); G89.29 Other chronic pain; G56.02 Carpal tunnel syndrome, left upper limb
CPT/HCPCS: 97110; 97140

== ENCOUNTER 2023-01-12 01:21 | Day surgery (SDC) | payer BC, SELFPAY ==
[2022-12-30 14:46] VITALS: BMI 36.1
[2023-01-12 11:28] VITALS: BP 135/92; PULSE 61; RESP 18; TEMP 36.5; O2SAT 96
[2023-01-12] MEDS: LACTATED RINGERS 1,000 ML 150 ML IV CONT (11:30)
--- NOTE | 2023-01-12 11:30 | PM.HPGS ---
History of Present Illness History of Present Illness Consent: Risks, benefits, and alternatives have been discussed and questions answered. Patient agrees to proceed with procedure. Chief complaint: neoplasm screening Narrative: Chiac Schimtt is a 62 year old female Presents for screening colonoscopy. Patient's current weight appetite and bowel movements are normal. She denies abdominal pain. Family history is noncontributory. Patient reports small little bump the anus that occasionally has bleeding. She has been told she had hemorrhoids. Review of Systems Review of Systems: Review of systems noncontributory. [facility] Past Medical History Medical History (Updated 10/25/22 @ 15:44 by Ish Mix MD) Annual physical exam Carpal tunnel syndrome, left Carpal tunnel syndrome, right Generalized anxiety disorder Hyperlipidemia Hypothyroidism, unspecified Impingement syndrome, shoulder, left Left shoulder pain Melanoma Treated at [facility] c/o Dr. Singh Screening cholesterol level Screening for colon cancer Tendinitis of left rotator cuff Surgical History Surgical History ) History of hand surgery Left CTR and 1st/2nd trigger finger release DOS: 12/16/[address] Ardon Right CTR on 01/27/[address] Ardon Hx of breast reduction, elective Family History Family History ) Other Arthritis Cerebrovascular accident Social History Social History ) Smoking status: Never smoker Second hand tobacco smoke exposure: No Alcohol intake: current Drinks per week: 3 Alcohol use details: SOCIAL Substance use: never Substance use type: does not use Living arrangements: with family Occupation/Education: occupation Gender identity (if verbalized by the patient): Female Spiritual care concerns: No Meds Home Medications and Allergies Home Medications Medication Instructions Recorded Confirmed Type paroxetine HCl 20 mg tablet 20 mg PO DAILY 02/11/20 12/30/22 History cholecalciferol (vitamin D3) 1,250 50,000 unit PO WEEKLY #8 caps 08/11/22 12/30/22 Rx mcg (50,000 unit) capsule spironolactone 100 mg tablet 100 mg PO DAILY 12/30/22 12/30/22 History levothyroxine 137 mcg tablet See Rx Instructions .Route 01/09/23 01/12/23 Rx .COMPLEX #90 tabs Allergies Allergy/AdvReac Type Severity Reaction Status Date / Time No Known Allergies Allergy Verified 01/12/23 11:26 Vital Signs Vital Signs - 24 hr 01/12/23 11:28 Temperature 97.7 F Pulse Rate 61 Respiratory Rate 18 Blood Pressure 135/92 H Pulse Oximetry 96 Oxygen Delivery Room Air Exam Narrative: Physical exam reveals patient to be alert. Vital signs stable. HEENT exam is unremarkable. Patient is anicteric. Lungs are clear to auscultation and percussion. Heart is without murmur or extra sounds. Abdomen bowel sounds are present soft nontender with no organomegaly. Digital external rectal exam normal. Assessment and Plan Assessment and plan (1) Screening for colon cancer: Code(s): Z12.11 - Encounter for screening for malignant neoplasm of colon Status: Acute Assessment and Plan: Patient presents for screening colonoscopy. She appears to be at average risk for colon polyps. Further recommendations will be given after endoscopy. Fiber supplements are encouraged for a possible history hemorrhoids. Further recommendations may be given after procedure.
--- NOTE | 2023-01-12 11:30 | WPDANESEPPF ---
Anes - Initial Pre Proc Eval Procedure: Operation Date: 01/12/23 12:30 Proposed Procedures p Screening Colonoscopy - Murphy Millan MD Date/Time: 01/12/23 11:30 Surgeon: Murphy Millan MD Pre Op Diagnosis: neoplasm screening Patient Data Age: 62 Gender: F Height: 1.7 m Weight: 107.2 kg Last Vital Signs Temp 36.5 C 01/12/23 11:28 Pulse 61 01/12/23 11:28 Resp 18 01/12/23 11:28 BP 135/92 H 01/12/23 11:28 Pulse Ox 96 01/12/23 11:28 O2 Del Method Room Air 01/12/23 11:28 Allergies Allergy/AdvReac Type Severity Reaction Status Date / Time No Known Allergies Allergy Verified 01/12/23 11:26 Home Medications Medication Instructions Recorded Confirmed Type paroxetine HCl 20 mg tablet 20 mg PO DAILY 02/11/20 12/30/22 History cholecalciferol (vitamin D3) 1,250 50,000 unit PO WEEKLY #8 caps 08/11/22 12/30/22 Rx mcg (50,000 unit) capsule spironolactone 100 mg tablet 100 mg PO DAILY 12/30/22 12/30/22 History levothyroxine 137 mcg tablet See Rx Instructions .Route 01/09/23 01/12/23 Rx .COMPLEX #90 tabs Patient hx anesthesia problems: none Family hx anesthesia problems: none Results Review: All pre-operative results and documents have been reviewed as part of the pre-operative evaluation. [facility] Past Medical History Medical History Annual physical exam Carpal tunnel syndrome, left Carpal tunnel syndrome, right Generalized anxiety disorder Hyperlipidemia Hypothyroidism, unspecified Impingement syndrome, shoulder, left Left shoulder pain Melanoma Treated at [facility] c/o Dr. Singh Screening cholesterol level Screening for colon cancer Tendinitis of left rotator cuff Surgical History Surgical History History of hand surgery Left CTR and 1st/2nd trigger finger release DOS: 12/16/[address] Ardon Right CTR on 01/27/[address] Ardon Hx of breast reduction, elective Family History Family History Other Arthritis Cerebrovascular accident Social History Social History Smoking status: Never smoker Second hand tobacco smoke exposure: No Alcohol intake: current Drinks per week: 3 Alcohol use details: SOCIAL Substance use: never Substance use type: does not use Living arrangements: with family Occupation/Education: occupation Gender identity (if verbalized by the patient): Female Spiritual care concerns: No Anes - Eval Final PreProcedure Day of Procedure 01/12/23 11:30 Patient weight: obese Heart: regular rate and rhythm Lungs: clear to auscultation Airway: Mallampati scale class II Neurological: alert and oriented Last oral intake: >/= 8 hours ASA classification: II Emergent: no Anesthetic plan: proceed Anesthesia type and monitoring: general GIVS and standard monitoring Results Review: All pre-operative results and documents have been reviewed as part of the pre-operative evaluation. Informed Consent: The patient's anesthetic plan and its attendant risks and benefits were discussed with the patient/family/POA. Questions were solicited and answers provided to the satisfaction of the patient/family/POA.
[2023-01-12 12:31] VITALS: BP 123/71; PULSE 65; RESP 16; O2SAT 95
[2023-01-12 12:41] VITALS: BP 116/47; PULSE 58; RESP 27; O2SAT 95
[2023-01-12 12:51] VITALS: BP 120/76; PULSE 51; RESP 17; O2SAT 100
== END 2023-01-12 12:56 | disposition home or self-care (01) ==
PROVIDERS: PCP Family Medicine; Visit Provider Internal Medicine Gastroenterology
PROC: 0DJD8ZZ Inspection of Lower Intestinal Tract, Via Natural or Artificial Opening Endoscopic (ICD-10-PCS; CPT 45378; principal; 2023-01-12 12:30)
DX: Z12.11 Encounter for screening for malignant neoplasm of colon (principal); K64.8 Other hemorrhoids; Z86.010 Personal history of colon polyps; E03.9 Hypothyroidism, unspecified; F41.1 Generalized anxiety disorder; E66.9 Obesity, unspecified; Z68.37 Body mass index [BMI] 37.0-37.9, adult
CPT/HCPCS: 45378; J2704; J7120

== ENCOUNTER → 2023-02-10 12:05 | Outpatient (CLI) | payer BC, SELFPAY ==
--- NOTE | ~2023-02-10 | MM_ITS ---
EXAMINATION: MM screening [facility] w raiza HISTORY: Screening mammogram TECHNIQUE: Craniocaudal and mediolateral oblique 3-D tomosynthesis images were obtained and synthetic 2-D images were generated. CAD analysis was submitted and interpreted. COMPARISON: 12/23/2021, 10/23/2020 bilateral screening mammogram examinations BREAST PARENCHYMAL COMPOSITION: There are scattered areas of fibroglandular density. FINDINGS: There is no evidence of suspicious mass, calcification, or architectural distortion to sugg est malignancy in either breast. There has been no suspicious interval change. IMPRESSION: 1. No mammographic evidence of malignancy. 2. Recommend routine screening mammography in one year. BI-RADS Category 1: Negative Reviewed, dictated and finalized at location A.
== END ==
PROVIDERS: PCP Family Medicine; Visit Provider Nurse Practitioner
DX: Z12.31 Encounter for screening mammogram for malignant neoplasm of breast (principal)
CPT/HCPCS: 77063; 77067

== ENCOUNTER 2024-02-13 07:31 | Outpatient (CLI) | payer BC, SELFPAY ==
--- NOTE | ~2024-02-13 | MM_ITS ---
EXAMINATION: MM screening [facility] BI w raiza HISTORY: Screening TECHNIQUE: Craniocaudal and mediolateral oblique 3-D tomosynthesis images were obtained and synthetic 2-D images were generated. CAD analysis was submitted and interpreted. COMPARISON: Comparison to multiple prior studies sequentially, with oldest reviewed study dated 09/13. BREAST PARENCHYMAL COMPOSITION: Not dense: There are scattered areas of fibroglandular density. FINDINGS: There is no evidence of suspicious mass, calcification, or architectural distortion to sugg est malignancy in either breast. There has been no suspicious interval change. IMPRESSION: 1. No mammographic evidence of malignancy. 2. Recommend routine screening mammography in one year. BI-RADS Category 1: Negative Reviewed, dictated and finalized at location B.
== END 2024-02-13 07:32 | disposition home or self-care (01) ==
LOC: MICIMG 07:34
PROVIDERS: PCP Nurse Practitioner; Visit Provider Nurse Practitioner
DX: Z12.31 Encounter for screening mammogram for malignant neoplasm of breast (principal)
CPT/HCPCS: 77063; 77067